=== PATIENT | male | born 1985 | race Hispanic/Latino ===

== ENCOUNTER 2021-10-23 19:45 | Emergency (ER) | payer BC, MEDICARE ==
[2021-10-23 20:50] LABS: Amphetamine Screen,Urine PRESUMPTIVE NEGATIVE; Benzodiazepines Screen,Urine PRESUMPTIVE NEGATIVE; Cannabinoid Screen,Urine PRESUMPTIVE NEGATIVE; Cocaine Screen,Urine PRESUMPTIVE NEGATIVE; Methadone Screen,Urine PRESUMPTIVE NEGATIVE; Opiate Screen,Urine PRESUMPTIVE NEGATIVE
[2021-10-23 20:55] LABS: Basophils % (Auto) 0.6 % (0.0-1.8); Eosinophils % (Auto) 0.2 % (0.0-4.3); Hematocrit 47.3 % (35.5-45.6); Hemoglobin 16.4 gm/dl (11.8-15.2); Lymphocytes # (Auto) 1.3 K/mm3 (1.2-5.4); Lymphocytes % (Auto) 16.8 % (13.4-35.0); Mean Corpuscular HGB Conc 35 % (32-34); Mean Corpuscular Volume 86 fl (84-94); Monocytes # (Auto) 0.5 K/mm3 (0.0-0.8); Platelet Count 180 K/mm3 (140-440); Red Blood Count 5.51 M/mm3 (3.65-5.03); Red Cell Distribution Width 14.4 % (13.2-15.2)
[2021-10-23 20:58] LABS: Bilirubin,Urine NEG (Negative); Blood,Urine NEG (Negative); Color,Urine Yellow (Yellow); Protein,Urine <15 mg/dL mg/dL (Negative); WBC,Urine < 1.0 /HPF (0.0-6.0)
[2021-10-23 21:07] LABS: BUN/Creatinine Ratio 13; Blood Urea Nitrogen 10 mg/dL (9-20); Calcium 9.5 mg/dL (8.4-10.2); Hemolysis Index 10
--- NOTE | 2021-10-23 21:47 | Emergency Department Report ---
ED Psych HPI - General Chief Complaint: Psych Stated Complaint: DEPRESSED, SUICIDAL IDEATIONS Time Seen by Provider: 10/23/21 21:23 Source: patient Mode of arrival: Ambulatory - History of Present Illness Initial Comments: 36-year-old male with a history of bipolar who now presented with suicidal ideation that started this morning progressively getting worse. Patient denies any fall or trauma to the brain. Patient denies any homicidal ideation. He also mention compliant to his medication. No other modifying or associated factors reported. MD Complaint: suicidal ideation - Related Data Allergies Allergy/AdvReac Type Severity Reaction Status Date / Time diphenhydramine Allergy Unknown Verified 10/23/21 20:03 [From Benadryl] Penicillins Allergy Hives Verified 10/23/21 20:03 prednisone Allergy Unknown Verified 10/23/21 20:03 Sulfa (Sulfonamide Allergy Anaphylaxis Verified 10/23/21 20:03 Antibiotics) ED Review of Systems ROS: Stated complaint: DEPRESSED, SUICIDAL IDEATIONS Other details as noted in HPI Comment: All other systems reviewed and negative Psychiatric: depression, suicidal thoughts ED Past Medical Hx - Past Medical History Previous Medical History?: Yes Hx Psychiatric Treatment: Yes ED Physical Exam - General Limitations: No Limitations General appearance: alert, in no apparent distress - Head Head exam: Present: atraumatic, normal inspection - Eye Eye exam: Present: normal appearance Pupils: Present: normal accommodation - ENT ENT exam: Present: normal exam, normal orophraynx, mucous membranes moist - Neck Neck exam: Present: normal inspection, full ROM. Absent: tenderness - Respiratory Respiratory exam: Present: normal lung sounds bilaterally. Absent: respiratory distress, accessory muscle use - Cardiovascular Cardiovascular Exam: Present: regular rate, normal rhythm, normal heart sounds - GI/Abdominal GI/Abdominal exam: Present: soft, normal bowel sounds. Absent: tenderness - Extremities Exam Extremities exam: Present: normal inspection - Back Exam Back exam: Absent: tenderness - Neurological Exam Neurological exam: Present: alert, oriented X3 - Psychiatric Psychiatric exam: Present: normal affect, normal mood, depressed - Skin Skin exam: Present: warm, intact ED Course Vital Signs 10/23/21 19:58 Temperature 98.3 F Pulse Rate 110 H Respiratory 18 Rate Blood Pressure 146/93 [Left] O2 Sat by Pulse 100 Oximetry - Reevaluation(s) Reevaluation #1: 10/23/21 21:46 Here with suicidal ideation--with history of depression and anxiety--we will go ahead and check routine psych labs and have patient consulted with mental health-- ED Medical Decision Making - Lab Data Result diagrams: 10/23/21 20:35 10/23/21 20:35 Critical care attestation.: If time is entered above; I have spent that time in minutes in the direct care of this critically ill patient, excluding procedure time. ED Disposition Clinical Impression: Suicidal ideation Depression Qualifiers: Depression Type: unspecified Qualified Code(s): F32.A - Depression, unspecified Does the pt Need Aspirin: No Condition: Stable
[2021-10-23 22:34] LABS: Alanine Aminotransferase 18 units/L (7-56); Albumin 4.8 g/dL (3.9-5); Bilirubin,Direct < 0.2 mg/dL (0-0.2)
--- NOTE | 2021-10-24 10:18 | Consultation ---
History of Present Illness - Reason for Consult Consult date: 10/24/21 Reason for consult: MHE - Chief Complaint Chief complaint: I was suicidal - History of Present Psychiatric Illness The patient is a 36yo male with history of bipolar disorder who present with suicidal thoughts yesterday. Patient is alert, calm and pleasant this morning. He feels a lot better and wants to go home and continue his treatment in outpatient. He denies abusing drugs. UDS is negative. He denies legal problems and states that he has no access to guns. Recommendations: DISPOSITION: Per primary team, no indication for acute inpatient psychiatric hospitalization at this time LEGAL STATUS: 1013 discontinued FOLLOW-UP: Will sign off Please contact with any questions and/or concerns. Medications and Allergies Allergies Allergy/AdvReac Type Severity Reaction Status Date / Time diphenhydramine Allergy Unknown Verified 10/23/21 20:03 [From Benadryl] Penicillins Allergy Hives Verified 10/23/21 20:03 prednisone Allergy Unknown Verified 10/23/21 20:03 Sulfa (Sulfonamide Allergy Anaphylaxis Verified 10/23/21 20:03 Antibiotics) Mental Status Exam - Vital signs Last Vital Signs Temp 98.3 F 10/23/21 19:58 Pulse 110 H 10/23/21 19:58 Resp 18 10/23/21 19:58 BP 146/93 10/23/21 19:58 Pulse Ox 97 10/23/21 21:45 - Exam Orientation: time, place, person Affect: normal Mood: appropriate Thought Process: Intact Perceptions: none Speech: normal rate and pattern Concentration: focused Motor activity: normal Level of consciousness: alert Memory: Intact Sleep Symptoms: None Interaction: cooperative Mini mental status exam(if necessary): 24-30 Results Result Diagrams: 10/23/21 20:35 10/23/21 20:35 Abnormal lab results 10/23/21 10/23/21 10/23/21 Range/Units 20:35 20:35 20:35 RBC (3.65-5.03) M/mm3 Hgb (11.8-15.2) gm/dl Hct (35.5-45.6) % MCHC (32-34) % Seg Neutrophils % (40.0-70.0) % Glucose 127 H (75-100) mg/dL Alkaline Phosphatase (35-129) units/L Salicylates < 0.3 L (2.8-20.0) mg/dL Acetaminophen 5.0 L (10.0-30.0) ug/mL 10/23/21 10/23/21 Range/Units 20:35 22:01 RBC 5.51 H (3.65-5.03) M/mm3 Hgb 16.4 H (11.8-15.2) gm/dl Hct 47.3 H (35.5-45.6) % MCHC 35 H (32-34) % Seg Neutrophils % 75.4 H (40.0-70.0) % Glucose (75-100) mg/dL Alkaline Phosphatase 137 H (35-129) units/L Salicylates (2.8-20.0) mg/dL Acetaminophen (10.0-30.0) ug/mL All other labs normal. Assessment and Plan - Psychiatric problem (1) Bipolar affective disorder Current Visit: Yes Status: Acute
--- NOTE | 2021-10-24 11:20 | Event Note ---
Date: 10/24/21 Patient is a 36 years old male admitted to the ER with a suicidal ideation. Patient has been evaluated by our psychiatric team recommended patient to be discharged and follow-up as an outpatient. Patient is currently denying any suicidal homicidal ideation. No visual or auditory hallucination. Patient is medically and psychiatrically stable for discharge.
[2021-10-24 11:55] VITALS: BP 147/90
== END 2021-10-24 12:36 ==
LOC: ED 19:45
DX: R45.851 Suicidal ideations (principal); F32.9 Major depressive disorder, single episode, unspecified; Z20.822 Contact with and (suspected) exposure to COVID-19; Z88.0 Allergy status to penicillin; Z88.2 Allergy status to sulfonamides; Z88.8 Allergy status to other drugs, medicaments and biological substances
CPT/HCPCS: 36415; 80048; 80076; 80307; 81001; 85025; 99284; U0003; 80320; G0480

== ENCOUNTER 2021-11-20 16:08 | Emergency (ER) | payer BC, MEDICARE ==
[2021-11-20 16:55] LABS: Basophils % (Auto) 0.5 % (0.0-1.8); Eosinophils % (Auto) 0.3 % (0.0-4.3); Hemoglobin 15.3 gm/dl (11.8-15.2); Lymphocytes # (Auto) 0.9 K/mm3 (1.2-5.4); Lymphocytes % (Auto) 10.5 % (13.4-35.0); Mean Corpuscular HGB Conc 33 % (32-34); Mean Corpuscular Volume 83 fl (84-94); Monocytes # (Auto) 0.6 K/mm3 (0.0-0.8); Platelet Count 217 K/mm3 (140-440); Red Blood Count 5.52 M/mm3 (3.65-5.03); Red Cell Distribution Width 14.7 % (13.2-15.2)
--- NOTE | 2021-11-20 17:00 | Emergency Department Report ---
ED Psych HPI - General Chief Complaint: Psych Stated Complaint: SI/HI Time Seen by Provider: 11/20/21 16:20 Source: patient Mode of arrival: Ambulatory Limitations: No Limitations - History of Present Illness Initial Comments: 36-year-old male with a past medical history of bipolar disorder, schizoaffective disorder, generalized anxiety disorder, and seizures presents to the hospital with complaints of severe depression. Patient is compliant with his medications. Patient presents with a police escort. Patient was at [facility] prior to ED arrival. Apparently patient expressed suicidal homicidal ideation therefore police were called to escort patient to the hospital for 1013 and evaluation. As per paperwork provided by [facility] it appears the patient was admitted. Yesterday for detox. Patient admits to drug use but nonspecific as to which drugs he is abusing. He denies alcohol abuse. Patient does endorse auditory hallucinations. He denies physical complaints. Upon arrival he denies suicidal homicidal ideation and states he is just very sad - Related Data Home Medications Medication Instructions Recorded Confirmed Last Taken Albuterol Sulfate 90 mcg INHALATION PRN 11/20/21 Unknown Aripiprazole 20 mg PO DAILY 11/20/21 11/20/21 Unknown Carbamazepine 200 mg PO DAILY 11/20/21 11/20/21 Unknown Escitalopram 10 mg PO DAILY 11/20/21 11/20/21 Unknown Hydroxyzine Pamoate 50 mg PO Q4HR 11/20/21 11/20/21 Unknown [place] Carbonate 300 mg PO BID 11/20/21 11/20/21 Unknown risperiDONE 1 mg PO QAM 11/20/21 11/20/21 Unknown risperiDONE 2 mg PO QHS 11/20/21 11/20/21 Unknown Allergies Allergy/AdvReac Type Severity Reaction Status Date / Time diphenhydramine Allergy Unknown Verified 11/20/21 16:16 [From Benadryl] Penicillins Allergy Hives Verified 11/20/21 16:16 prednisone Allergy Unknown Verified 11/20/21 16:16 Sulfa (Sulfonamide Allergy Anaphylaxis Verified 11/20/21 16:16 Antibiotics) ED Review of Systems ROS: Stated complaint: SI/HI Other details as noted in HPI Comment: All other systems reviewed and negative ED Past Medical Hx - Past Medical History Previous Medical History?: Yes Hx Seizures: Yes Hx Psychiatric Treatment: Yes (SCHIZOAFFECTIVE DISOIRDER, BIPOLAR,ANXIETY) - Medications Home Medications: Home Medications Medication Instructions Recorded Confirmed Last Taken Type Albuterol Sulfate 90 mcg INHALATION PRN 11/20/21 Unknown History Aripiprazole 20 mg PO DAILY 11/20/21 11/20/21 Unknown History Carbamazepine 200 mg PO DAILY 11/20/21 11/20/21 Unknown History Escitalopram 10 mg PO DAILY 11/20/21 11/20/21 Unknown History Hydroxyzine Pamoate 50 mg PO Q4HR 11/20/21 11/20/21 Unknown History [place] Carbonate 300 mg PO BID 11/20/21 11/20/21 Unknown History risperiDONE 1 mg PO QAM 11/20/21 11/20/21 Unknown History risperiDONE 2 mg PO QHS 11/20/21 11/20/21 Unknown History ED Physical Exam - General Limitations: Other - Other Other exam information: General: No acute distress Head: Atraumatic Eyes: normal appearance ENT: Moist mucous membranes Neck: Normal appearance, no midline tenderness Chest: Clear to auscultation bilaterally CV: Regular rate and rhythm Abdomen: Soft, normal bowel sounds, nontender, nondistended, no rebound or guarding Back: Normal inspection Extremity: Normal inspection, full range of motion Neuro: Alert O x 3, no facial asymmetry, speech clear, no gross motor sensory deficit Psych: Cooperative, very talkative, good eye contact Skin: No rash ED Course Vital Signs 11/20/21 11/20/21 16:56 17:03 Temperature 98.9 F Pulse Rate 105 H Respiratory 16 Rate Blood Pressure 152/96 [Left] O2 Sat by Pulse 96 96 Oximetry ED Medical Decision Making - Lab Data Result diagrams: 11/20/21 16:33 11/20/21 16:33 - Medical Decision Making 36-year male presents to the hospital with psychosis, substance abuse, homicidal , and suicidal ideation. UA UDS collection pending however, patient is medically cleared based on results thus far. Patient required IM antipsychotic for sedation due to combative behavior in the ED. 1013 signed and awaiting psychiatric disposition. Critical care attestation.: If time is entered above; I have spent that time in minutes in the direct care of this critically ill patient, excluding procedure time. ED Disposition Clinical Impression: Bipolar affective disorder, Suicidal ideation, Homicidal ideation, Acute psyc hosis, Medical clearance for psychiatric admission Disposition: [address] [place] [address] Is pt being admited?: No Condition: Stable
[2021-11-20 17:14] LABS: BUN/Creatinine Ratio 14; Blood Urea Nitrogen 7 mg/dL (9-20); Calcium 9.6 mg/dL (8.4-10.2); Hemolysis Index 16
[2021-11-20] MEDS ORDERED: ZIPRASIDONE MESYLATE 20 MG VIAL IM ONE (17:50)
[2021-11-20] MEDS ORDERED: WATER FOR INJ Sterile (PF) 10 ML ONE ×2 (18:49→18:50)
[2021-11-21] MEDS ORDERED: ZIPRASIDONE MESYLATE 20 MG VIAL IM ONE ×2 (00:17)
[2021-11-21 09:27] LABS: Amphetamine Screen,Urine Negative; Benzodiazepines Screen,Urine Negative; Cannabinoid Screen,Urine Negative; Cocaine Screen,Urine Negative; Methadone Screen,Urine Negative; Opiate Screen,Urine Negative
[2021-11-21 09:40] LABS: Mucus,Urine FEW /HPF
--- NOTE | 2021-11-21 09:44 | Consultation ---
History of Present Illness - Reason for Consult Consult date: 11/21/21 Reason for consult: depression, SI - History of Present Psychiatric Illness HPI: 36-year-old male with a past medical history of bipolar disorder, schizoaffective disorder, generalized anxiety disorder, and seizures presents to the hospital with complaints of severe depression. Patient is compliant with his medications. Patient presents with a police escort. Patient was at [facility] prior to ED arrival. Apparently patient expressed suicidal homicidal ideation therefore police were called to escort patient to the hospital for 1013 and evaluation. As per paperwork provided by [facility] it appears the patient was admitted. Yesterday for detox. Patient admits to drug use but nonspecific as to which drugs he is abusing. He denies alcohol abuse. Patient does endorse auditory hallucinations. He denies physical complaints. Upon arrival he denies suicidal homicidal ideation and states he is just very sad. The patient was seen today. He is in the seclusion room. He is shaking and appears anxious. The patient says "I want to cooperate." He says he feels very sad and has bad nerves. He denies SI/HI. He starts crying, and says "don't close the door. I need it open." the patient denies hallucinations at present, but says "sometimes." The nursing staff says the patient has been talking to himself a lot. PAST PSYCHIATRIC HISTORY: Diagnoses: Bipolar Disorder, schizoaffective disorder, ELMA Suicide attempts or Self-harm behavior: Yes Prior psychiatric hospitalizations: Yes Substance Abuse history: Denies Previous psychiatric medications tried: bob Patrick Outpatient treatment: Yes PAST MEDICAL HISTORY: None reported Family Psychiatric History: None reported or documented SOCIAL HISTORY Marital Status: Living Arrangements: [facility] Employment Status: Disabled Access to guns/weapons: Denies Education: History of Abuse:Denies Legal History: Denies REVIEW OF SYSTEMS Constitutional: Negative for weight loss ENT: Negative for stridor Respiratory: Negative for cough or hemoptysis All other systems reviewed and are negative MENTAL STATUS EXAMINATION General Appearance and Behavior: Age appropriate, wearing appropriate clothes, cooperative, polite with questioning, good eye contact Cooperation: cooperative Psychomotor Behavior: Psychomotor normal Mood: Depressed Affect and affective range: congruent with stated affect Thought Process: Goal directed Thought Content: depression, hopelessness Speech: Normal volume, Regular rate and rhythm Suicidal Ideation: Denies Homicidal Ideation: Denies Hallucination: Auditory Delusions: Denies Impulse Control: Limited Insight and Judgment: Limited Memory: Intact Attention:attentive Orientation: Alert and oriented Diagnoses: Bipolar Disorder Treatment Plan 1013 Abilify 20mg po daily Lexapro 20mg po daily Doxepin 10mg po qhs Sitter: per primary Medical: Per primary Disposition: Recommend acute psychiatric inpatient treatment Will follow. Thanks Case staffed by Dr. Weller Medications and Allergies Allergies Allergy/AdvReac Type Severity Reaction Status Date / Time diphenhydramine Allergy Unknown Verified 11/20/21 16:16 [From Benadryl] Penicillins Allergy Hives Verified 11/20/21 16:16 prednisone Allergy Unknown Verified 11/20/21 16:16 Sulfa (Sulfonamide Allergy Anaphylaxis Verified 11/20/21 16:16 Antibiotics) Home Medications Medication Instructions Recorded Confirmed Last Taken Type Albuterol Sulfate 90 mcg INHALATION PRN 11/20/21 Unknown History Aripiprazole 20 mg PO DAILY 11/20/21 11/20/21 Unknown History Carbamazepine 200 mg PO DAILY 11/20/21 11/20/21 Unknown History Escitalopram 10 mg PO DAILY 11/20/21 11/20/21 Unknown History Hydroxyzine Pamoate 50 mg PO Q4HR 11/20/21 11/20/21 Unknown History [place] Carbonate 300 mg PO BID 11/20/21 11/20/21 Unknown History risperiDONE 1 mg PO QAM 11/20/21 11/20/21 Unknown History risperiDONE 2 mg PO QHS 11/20/21 11/20/21 Unknown History Mental Status Exam - Vital signs Last Vital Signs Temp 98 F 11/21/21 00:20 Pulse 92 H 11/21/21 00:20 Resp 18 11/21/21 00:20 BP 136/86 11/21/21 00:20 Pulse Ox 100 11/21/21 00:20 Results Result Diagrams: 11/20/21 16:33 11/20/21 16:33 Abnormal lab results 11/20/21 11/20/21 11/20/21 Range/Units 16:33 16:33 16:33 RBC 5.52 H (3.65-5.03) M/mm3 Hgb 15.3 H (11.8-15.2) gm/dl Hct 46.0 H (35.5-45.6) % MCV 83 L (84-94) fl Lymph % (Auto) 10.5 L (13.4-35.0) % Lymph # (Auto) 0.9 L (1.2-5.4) K/mm3 Seg Neutrophils % 81.7 H (40.0-70.0) % Sodium 135 L (137-145) mmol/L BUN 7 L (9-20) mg/dL Creatinine 0.5 L (0.8-1.3) mg/dL Glucose 106 H (75-100) mg/dL Salicylates < 0.3 L (2.8-20.0) mg/dL Acetaminophen (10.0-30.0) ug/mL 11/20/21 Range/Units 16:33 RBC (3.65-5.03) M/mm3 Hgb (11.8-15.2) gm/dl Hct (35.5-45.6) % MCV (84-94) fl Lymph % (Auto) (13.4-35.0) % Lymph # (Auto) (1.2-5.4) K/mm3 Seg Neutrophils % (40.0-70.0) % Sodium (137-145) mmol/L BUN (9-20) mg/dL Creatinine (0.8-1.3) mg/dL Glucose (75-100) mg/dL Salicylates (2.8-20.0) mg/dL Acetaminophen 5.0 L (10.0-30.0) ug/mL All other labs normal.
[2021-11-21 10:08] LABS: Bilirubin,Urine Negative (Negative); Blood,Urine Negative (Negative); Color,Urine Yellow (Yellow); Urobilinogen,Urine < 2.0 mg/dL (<2.0)
[2021-11-21] MEDS: ARIPiprazole 10 MG TAB PO SCH (10:37)
[2021-11-21] MEDS: ESCITALOPRAM 10 MG TAB PO SCH (10:37)
[2021-11-21] MEDS: DOXEPIN 10 MG CAP PO SCH (22:00)
--- NOTE | 2021-11-22 10:15 | Progress Note ---
Subjective - Reason for Consult Consult date: 11/22/21 Reason for consult: psychosis - Chief Complaint Chief complaint: The patient was seen today. He is in the seclusion room. The patient is positive for COVID. He is acutely psychotic. He says he's "blessed and highly favored." The patient says he's depressed. He is asking me if he can play basketball. He is mumbling at times. REVIEW OF SYSTEMS Constitutional: Negative for weight loss ENT: Negative for stridor Respiratory: Negative for cough or hemoptysis All other systems reviewed and are negative MENTAL STATUS EXAMINATION General Appearance and Behavior: Age appropriate, wearing appropriate clothes, cooperative, polite with questioning, good eye contact Cooperation: cooperative Psychomotor Behavior: Psychomotor normal Mood: Depressed Affect and affective range: congruent with stated affect Thought Process: Goal directed Thought Content: depression, hopelessness Speech: Normal volume, Regular rate and rhythm Suicidal Ideation: Denies Homicidal Ideation: Denies Hallucination: Auditory Delusions: Denies Impulse Control: Limited Insight and Judgment: Limited Memory: Intact Attention:attentive Orientation: Alert and oriented Diagnoses: Bipolar Disorder Treatment Plan [address] 125mg po BID Abilify 20mg po daily Lexapro 20mg po daily Doxepin 10mg po qhs Sitter: per primary Medical: Per primary Disposition: Recommend acute psychiatric inpatient treatment Will follow. Thanks Case staffed by Dr. Weller Mental Status Exam - Vital signs Last Vital Signs Temp 98.1 F 11/21/21 20:16 Pulse 88 11/21/21 20:16 Resp 18 11/21/21 20:16 BP 139/88 11/21/21 20:16 Pulse Ox 98 11/21/21 20:16
--- NOTE | 2021-11-22 11:56 | Event Note ---
Date: 11/22/21 The patient can not refuse oral antipsychotic. He is to have prn Geodon up to q4h as needed if refusal of oral antipsychotic.
--- NOTE | 2021-11-22 12:05 | Event Note ---
Date: 11/22/21 The patient was evaluated in the emergency department for symptoms described in the history of present illness. He/she was evaluated in the context of the global COVID-19 pandemic, which necessitated consideration that the patient might be at risk for infection with the virus that causes COVID-19. Institutional protocols and algorithms that pertain to the evaluation of patients at risk for COVID-19 are in a state of rapid change based on information released by regulatory bodies including the CDC and federal and state organizations. These policies and algorithms were followed during the patient's care in the emergency department. Please note that these policies, procedures and recommendations changed on a rapid basis. Patient seen and evaluated. He is breathing spontaneously and in no acute distress. He was deemed medically suitable for psychiatric placement during his initial ER evaluation. His laboratory studies are unremarkable, and despite the fact that he is COVID-19 positive, he is not hypoxic. His COVID-19 status does not medically preclude him from psychiatric placement and disposition. He remains disorganized, and psychotic, and nursing team reports that he is masturbating in the room. He is refusing to take his oral medications. As needed intramuscular medications have been ordered by the psychiatric provider. Laboratory studies, vital signs, ER documentation, psychiatric documentation, and nursing documentation reviewed and appreciated Patient remains medically suitable for psychiatric placement and disposition at this time, and currently does not have an emergent medical condition which would preclude psychiatric placement and disposition Vital Signs 11/20/21 11/20/21 11/21/21 16:56 17:03 00:15 Temperature 98.9 F 98 F Pulse Rate 105 H 92 H Respiratory 16 18 Rate Blood Pressure 152/96 138/99 [Left] O2 Sat by Pulse 96 96 100 Oximetry 11/21/21 11/21/21 11/21/21 00:20 09:56 11:19 Temperature 98 F 97.4 F L Pulse Rate 92 H 97 H Respiratory 18 18 Rate Blood Pressure 136/86 131/89 [Left] O2 Sat by Pulse 100 98 98 Oximetry 11/21/21 11/21/21 16:16 20:16 Temperature 98.1 F Pulse Rate 88 Respiratory 18 Rate Blood Pressure 139/88 [Left] O2 Sat by Pulse 100 98 Oximetry Lab Results 11/20/21 11/20/21 11/20/21 Range/Units 16:33 16:33 16:33 WBC 8.3 (4.5-11.0) K/mm3 RBC 5.52 H (3.65-5.03) M/mm3 Hgb 15.3 H (11.8-15.2) gm/dl Hct 46.0 H (35.5-45.6) % MCV 83 L (84-94) fl MCH 28 (28-32) pg MCHC 33 (32-34) % RDW 14.7 (13.2-15.2) % Plt Count 217 (140-440) K/mm3 Lymph % (Auto) 10.5 L (13.4-35.0) % Young % (Auto) 7.0 (0.0-7.3) % Eos % (Auto) 0.3 (0.0-4.3) % Baso % (Auto) 0.5 (0.0-1.8) % Lymph # (Auto) 0.9 L (1.2-5.4) K/mm3 [place] # (Auto) 0.6 (0.0-0.8) K/mm3 Eos # (Auto) 0.0 (0.0-0.4) K/mm3 Baso # (Auto) 0.0 (0.0-0.1) K/mm3 Seg Neutrophils % 81.7 H (40.0-70.0) % Seg Neutrophils # 6.8 (1.8-7.7) K/mm3 Sodium 135 L (137-145) mmol/L Potassium 4.1 (3.6-5.0) mmol/L Chloride 98.6 (98-107) mmol/L Carbon Dioxide 26 (22-30) mmol/L Anion Gap 15 mmol/L BUN 7 L (9-20) mg/dL Creatinine 0.5 L (0.8-1.3) mg/dL Estimated GFR > 60 ml/min BUN/Creatinine Ratio 14 % Glucose 106 H (75-100) mg/dL Calcium 9.6 (8.4-10.2) mg/dL Urine Color (Yellow) Urine Turbidity (Clear) Urine pH (5.0-7.0) Ur Specific [place] (1.003-1.030) Urine Protein (Negative) mg/dL Urine Glucose (UA) (Negative) mg/dL Urine Ketones (Negative) mg/dL Urine Blood (Negative) Urine Nitrite (Negative) Ur Reducing Substances Urine Bilirubin (Negative) Urine Ictotest Urine Urobilinogen (<2.0) mg/dL Ur Leukocyte Esterase (Negative) Urine WBC (Auto) (0.0-6.0) /HPF Urine RBC (Auto) (0.0-6.0) /HPF U Epithel Cells (Auto) (0-13.0) /HPF Urine Mucus /HPF Salicylates < 0.3 L (2.8-20.0) mg/dL Urine Opiates Screen Urine Methadone Screen Acetaminophen (10.0-30.0) ug/mL Ur Barbiturates Screen Ur Phencyclidine Scrn Ur Amphetamines Screen U Benzodiazepines Scrn [place] 0.1 (0.0-1.2) mmol/L Urine Cocaine Screen U Marijuana (THC) Screen Drugs of Abuse Note Plasma/Serum Alcohol (0-0.07) % SARS-CoV-2 (PCR) (Negative) 11/20/21 11/20/21 11/21/21 Range/Units 16:33 16:33 08:59 WBC (4.5-11.0) K/mm3 RBC (3.65-5.03) M/mm3 Hgb (11.8-15.2) gm/dl Hct (35.5-45.6) % MCV (84-94) fl MCH (28-32) pg MCHC (32-34) % RDW (13.2-15.2) % Plt Count (140-440) K/mm3 Lymph % (Auto) (13.4-35.0) % [place] % (Auto) (0.0-7.3) % Eos % (Auto) (0.0-4.3) % Baso % (Auto) (0.0-1.8) % Lymph # (Auto) (1.2-5.4) K/mm3 [place] # (Auto) (0.0-0.8) K/mm3 Eos # (Auto) (0.0-0.4) K/mm3 Baso # (Auto) (0.0-0.1) K/mm3 Seg Neutrophils % (40.0-70.0) % Seg Neutrophils # (1.8-7.7) K/mm3 Sodium (137-145) mmol/L Potassium (3.6-5.0) mmol/L Chloride (98-107) mmol/L Carbon Dioxide (22-30) mmol/L Anion Gap mmol/L BUN (9-20) mg/dL Creatinine (0.8-1.3) mg/dL Estimated GFR ml/min BUN/Creatinine Ratio % Glucose (75-100) mg/dL Calcium (8.4-10.2) mg/dL Urine Color Yellow (Yellow) Urine Turbidity Clear (Clear) Urine pH 7.0 (5.0-7.0) Ur Specific [place] 1.010 (1.003-1.030) Urine Protein 30 mg/dl (Negative) mg/dL Urine Glucose (UA) Negative (Negative) mg/dL Urine Ketones 25 (Negative) mg/dL Urine Blood Negative (Negative) Urine Nitrite Negative (Negative) Ur Reducing Substances Not Reportable Urine Bilirubin Negative (Negative) Urine Ictotest Not Reportable Urine Urobilinogen < 2.0 (<2.0) mg/dL Ur Leukocyte Esterase Negative (Negative) Urine WBC (Auto) 2.0 (0.0-6.0) /HPF Urine RBC (Auto) 1.0 (0.0-6.0) /HPF U Epithel Cells (Auto) 1.0 (0-13.0) /HPF Urine Mucus Few /HPF Salicylates (2.8-20.0) mg/dL Urine Opiates Screen Urine Methadone Screen Acetaminophen 5.0 L (10.0-30.0) ug/mL Ur Barbiturates Screen Ur Phencyclidine Scrn Ur Amphetamines Screen U Benzodiazepines Scrn [place] (0.0-1.2) mmol/L Urine Cocaine Screen U Marijuana (THC) Screen Drugs of Abuse Note Plasma/Serum Alcohol < 0.01 (0-0.07) % SARS-CoV-2 (PCR) (Negative) 11/21/21 11/21/21 Range/Units 08:59 09:38 WBC (4.5-11.0) K/mm3 RBC (3.65-5.03) M/mm3 Hgb (11.8-15.2) gm/dl Hct (35.5-45.6) % MCV (84-94) fl MCH (28-32) pg MCHC (32-34) % RDW (13.2-15.2) % Plt Count (140-440) K/mm3 Lymph % (Auto) (13.4-35.0) % Young % (Auto) (0.0-7.3) % Eos % (Auto) (0.0-4.3) % Baso % (Auto) (0.0-1.8) % Lymph # (Auto) (1.2-5.4) K/mm3 Young # (Auto) (0.0-0.8) K/mm3 Eos # (Auto) (0.0-0.4) K/mm3 Baso # (Auto) (0.0-0.1) K/mm3 Seg Neutrophils % (40.0-70.0) % Seg Neutrophils # (1.8-7.7) K/mm3 Sodium (137-145) mmol/L Potassium (3.6-5.0) mmol/L Chloride (98-107) mmol/L Carbon Dioxide (22-30) mmol/L Anion Gap mmol/L BUN (9-20) mg/dL Creatinine (0.8-1.3) mg/dL Estimated GFR ml/min BUN/Creatinine Ratio % Glucose (75-100) mg/dL Calcium (8.4-10.2) mg/dL Urine Color (Yellow) Urine Turbidity (Clear) Urine pH (5.0-7.0) Ur Specific [place] (1.003-1.030) Urine Protein (Negative) mg/dL Urine Glucose (UA) (Negative) mg/dL Urine Ketones (Negative) mg/dL Urine Blood (Negative) Urine Nitrite (Negative) Ur Reducing Substances Urine Bilirubin (Negative) Urine Ictotest Urine Urobilinogen (<2.0) mg/dL Ur Leukocyte Esterase (Negative) Urine WBC (Auto) (0.0-6.0) /HPF Urine RBC (Auto) (0.0-6.0) /HPF U Epithel Cells (Auto) (0-13.0) /HPF Urine Mucus /HPF Salicylates (2.8-20.0) mg/dL Urine Opiates Screen Negative Urine Methadone Screen Negative Acetaminophen (10.0-30.0) ug/mL Ur Barbiturates Screen Negative Ur Phencyclidine Scrn Negative Ur Amphetamines Screen Negative U Benzodiazepines Scrn Negative [place] (0.0-1.2) mmol/L Urine Cocaine Screen Negative U Marijuana (THC) Screen Negative Drugs of Abuse Note Disclamer Plasma/Serum Alcohol (0-0.07) % SARS-CoV-2 (PCR) Positive A (Negative)
[2021-11-22] MEDS: ZIPRASIDONE MESYLATE 20 MG VIAL IM PRN (15:16)
[2021-11-22] MEDS: ARIPiprazole 10 MG TAB PO SCH (15:17)
[2021-11-22] MEDS: ESCITALOPRAM 10 MG TAB PO SCH (15:17)
[2021-11-22] MEDS: DIVALPROEX DR 125 MG TAB PO SCH (15:17)
[2021-11-23] MEDS ORDERED: WATER FOR INJ Sterile (PF) 10 ML ONE (08:29)
[2021-11-23] MEDS: ZIPRASIDONE MESYLATE 20 MG VIAL IM PRN (09:00)
[2021-11-23] MEDS: ESCITALOPRAM 10 MG TAB PO SCH (09:47)
[2021-11-23] MEDS: ARIPiprazole 10 MG TAB PO SCH (09:47)
[2021-11-23] MEDS: DIVALPROEX DR 125 MG TAB PO SCH (09:48)
--- NOTE | 2021-11-23 10:44 | Progress Note ---
Subjective - Reason for Consult Consult date: 11/23/21 Reason for consult: psychosis, depression - Chief Complaint Chief complaint: The patient was seen today. His thoughts are disorganized. He is hallucinating. He tells me that "Opal is bringing quests in and keeps throwing away my food." He is pointing in his room and no one is there. He says "I'm peaceful. I don't want to hurt myself or anybody. I just wish he would leave my room." Instructed the staff nurse to now allow the patient to refuse any meds, that he is to have prn antipsychotic if refuses oral antipsychotics. REVIEW OF SYSTEMS Constitutional: Negative for weight loss ENT: Negative for stridor Respiratory: Negative for cough or hemoptysis All other systems reviewed and are negative MENTAL STATUS EXAMINATION General Appearance and Behavior: Age appropriate, wearing appropriate clothes, cooperative, polite with questioning, good eye contact Cooperation: cooperative Psychomotor Behavior: Psychomotor normal Mood: Depressed Affect and affective range: congruent with stated affect Thought Process: Goal directed Thought Content: depression, hopelessness Speech: Normal volume, Regular rate and rhythm Suicidal Ideation: Denies Homicidal Ideation: Denies Hallucination: Auditory Delusions: Denies Impulse Control: Limited Insight and Judgment: Limited Memory: Intact Attention:attentive Orientation: Alert and oriented Diagnoses: Bipolar Disorder Treatment Plan [address] 250mg po BID Increase Abilify 30mg po daily Lexapro 20mg po daily Doxepin 10mg po qhs Sitter: per primary Medical: Per primary Disposition: Recommend acute psychiatric inpatient treatment Will follow. Thanks Case staffed by Dr. Weller Mental Status Exam - Vital signs Last Vital Signs Temp 98.7 F 11/23/21 08:20 Pulse 107 H 11/23/21 08:20 Resp 18 11/23/21 08:20 BP 138/87 11/23/21 08:20 Pulse Ox 100 11/23/21 09:01
--- NOTE | 2021-11-23 12:21 | Event Note ---
Date: 11/23/21 The patient is seen and examined He is naked in room 14 and as per verbal report from nursing team, continues to masturbate. He has loose associations, and he is still psychotic. Nursing notes, ER documentation, psychiatric documentation is reviewed and appreciated. Vital signs are reviewed and appreciated. The patient remains medically vicente itable for psychiatric disposition and placement at this time. He does not appear to have an emergent medical contraindication that should preclude psychiatric disposition and placement at this time Vital Signs 11/20/21 11/20/21 11/21/21 16:56 17:03 00:15 Temperature 98.9 F 98 F Pulse Rate 105 H 92 H Respiratory 16 18 Rate Blood Pressure 152/96 138/99 [Left] O2 Sat by Pulse 96 96 100 Oximetry 11/21/21 11/21/21 11/21/21 00:20 09:56 11:19 Temperature 98 F 97.4 F L Pulse Rate 92 H 97 H Respiratory 18 18 Rate Blood Pressure 136/86 131/89 [Left] O2 Sat by Pulse 100 98 98 Oximetry 11/21/21 11/21/21 11/22/21 16:16 20:16 20:56 Temperature 98.1 F 98.2 F Pulse Rate 88 85 Respiratory 18 18 Rate Blood Pressure 139/88 130/76 [Left] O2 Sat by Pulse 100 98 100 Oximetry 11/23/21 11/23/21 08:20 09:01 Temperature 98.7 F Pulse Rate 107 H Respiratory 18 Rate Blood Pressure 138/87 [Left] O2 Sat by Pulse 100 100 Oximetry
--- NOTE | 2021-11-24 09:56 | Progress Note ---
Subjective - Reason for Consult Consult date: 11/24/21 Reason for consult: psychosis - Chief Complaint Chief complaint: The patient was seen today. He is in the seclusion room. His thoughts are disorganized and he is speaking nonsensical. He is irritable, and talking loudly to himself. REVIEW OF SYSTEMS Unable to assess MENTAL STATUS EXAMINATION Unable to assess Diagnoses: Bipolar Disorder Treatment Plan [address] 250mg po BID Abilify 30mg po daily Lexapro 20mg po daily Doxepin 10mg po qhs Start [place] 300mg po BID Sitter: per primary Medical: Per primary Disposition: Recommend acute psychiatric inpatient treatment Will follow. Thanks Case staffed by Dr. Weller Mental Status Exam - Vital signs Last Vital Signs Temp 97.5 F L 11/24/21 08:25 Pulse 16 L 11/24/21 08:25 Resp 16 11/24/21 08:25 BP 141/87 11/24/21 08:25 Pulse Ox 95 11/24/21 08:25
[2021-11-24] MEDS: ARIPiprazole 15 MG TAB PO SCH (10:14)
[2021-11-24] MEDS: DIVALPROEX DR 250 MG TAB PO SCH (10:14)
[2021-11-24] MEDS: LITHIUM CARBONATE 300 MG CAP PO SCH (10:15)
[2021-11-24] MEDS: ESCITALOPRAM 10 MG TAB PO SCH ×2 (10:16→10:17)
--- NOTE | 2021-11-24 15:01 | Event Note ---
Date: 11/24/21 The patient was evaluated in the emergency department for symptoms described in the history of present illness. He/she was evaluated in the context of the global COVID-19 pandemic, which necessitated consideration that the patient might be at risk for infection with the virus that causes COVID-19. Institutional protocols and algorithms that pertain to the evaluation of patients at risk for COVID-19 are in a state of rapid change based on information released by regulatory bodies including the CDC and federal and state organizations. These policies and algorithms were followed during the patient's care in the emergency department. Please note that these policies, procedures and recommendations changed on a rapid basis. Laboratory studies, vital signs, nursing documentation, ER documentation, and psychiatric documentation are reviewed and appreciated. Patient remains disorganized and psychotic and is talking to himself The patient is awake and ambulating still experiencing pressured speech The patient was deemed medically suitable for psychiatric disposition and placement during his initial ER evaluation. The patient continues to remain medically suitable for psychiatric placement and disposition. He is currently pending psychiatric placement. Vital Signs 11/20/21 11/20/21 11/21/21 16:56 17:03 00:15 Temperature 98.9 F 98 F Pulse Rate 105 H 92 H Respiratory 16 18 Rate Blood Pressure 152/96 138/99 [Left] O2 Sat by Pulse 96 96 100 Oximetry 11/21/21 11/21/21 11/21/21 00:20 09:56 11:19 Temperature 98 F 97.4 F L Pulse Rate 92 H 97 H Respiratory 18 18 Rate Blood Pressure 136/86 131/89 [Left] O2 Sat by Pulse 100 98 98 Oximetry 11/21/21 11/21/21 11/22/21 16:16 20:16 20:56 Temperature 98.1 F 98.2 F Pulse Rate 88 85 Respiratory 18 18 Rate Blood Pressure 139/88 130/76 [Left] O2 Sat by Pulse 100 98 100 Oximetry 11/23/21 11/23/21 11/23/21 08:20 09:01 13:59 Temperature 98.7 F 97.6 F Pulse Rate 107 H 102 H Respiratory 18 20 Rate Blood Pressure 138/87 160/90 [Left] O2 Sat by Pulse 100 100 97 Oximetry 11/23/21 11/24/21 11/24/21 20:27 02:48 08:12 Temperature 98.1 F 98.1 F Pulse Rate 98 H 112 H Respiratory 18 18 Rate Blood Pressure 155/102 148/91 [Left] O2 Sat by Pulse 98 95 95 Oximetry 11/24/21 08:25 Temperature 97.5 F L Pulse Rate 16 L Respiratory 16 Rate Blood Pressure 141/87 [Left] O2 Sat by Pulse 95 Oximetry Lab Results 11/20/21 11/20/21 11/20/21 Range/Units 16:33 16:33 16:33 WBC 8.3 (4.5-11.0) K/mm3 RBC 5.52 H (3.65-5.03) M/mm3 Hgb 15.3 H (11.8-15.2) gm/dl Hct 46.0 H (35.5-45.6) % MCV 83 L (84-94) fl MCH 28 (28-32) pg MCHC 33 (32-34) % RDW 14.7 (13.2-15.2) % Plt Count 217 (140-440) K/mm3 Lymph % (Auto) 10.5 L (13.4-35.0) % [place] % (Auto) 7.0 (0.0-7.3) % Eos % (Auto) 0.3 (0.0-4.3) % Baso % (Auto) 0.5 (0.0-1.8) % Lymph # (Auto) 0.9 L (1.2-5.4) K/mm3 [place] # (Auto) 0.6 (0.0-0.8) K/mm3 Eos # (Auto) 0.0 (0.0-0.4) K/mm3 Baso # (Auto) 0.0 (0.0-0.1) K/mm3 Seg Neutrophils % 81.7 H (40.0-70.0) % Seg Neutrophils # 6.8 (1.8-7.7) K/mm3 Sodium 135 L (137-145) mmol/L Potassium 4.1 (3.6-5.0) mmol/L Chloride 98.6 (98-107) mmol/L Carbon Dioxide 26 (22-30) mmol/L Anion Gap 15 mmol/L BUN 7 L (9-20) mg/dL Creatinine 0.5 L (0.8-1.3) mg/dL Estimated GFR > 60 ml/min BUN/Creatinine Ratio 14 % Glucose 106 H (75-100) mg/dL Calcium 9.6 (8.4-10.2) mg/dL Urine Color (Yellow) Urine Turbidity (Clear) Urine pH (5.0-7.0) Ur Specific [place] (1.003-1.030) Urine Protein (Negative) mg/dL Urine Glucose (UA) (Negative) mg/dL Urine Ketones (Negative) mg/dL Urine Blood (Negative) Urine Nitrite (Negative) Ur Reducing Substances Urine Bilirubin (Negative) Urine Ictotest Urine Urobilinogen (<2.0) mg/dL Ur Leukocyte Esterase (Negative) Urine WBC (Auto) (0.0-6.0) /HPF Urine RBC (Auto) (0.0-6.0) /HPF U Epithel Cells (Auto) (0-13.0) /HPF Urine Mucus /HPF Salicylates < 0.3 L (2.8-20.0) mg/dL Urine Opiates Screen Urine Methadone Screen Acetaminophen (10.0-30.0) ug/mL Ur Barbiturates Screen Ur Phencyclidine Scrn Ur Amphetamines Screen U Benzodiazepines Scrn [place] 0.1 (0.0-1.2) mmol/L Urine Cocaine Screen U Marijuana (THC) Screen Drugs of Abuse Note Plasma/Serum Alcohol (0-0.07) % SARS-CoV-2 (PCR) (Negative) 11/20/21 11/20/21 11/21/21 Range/Units 16:33 16:33 08:59 WBC (4.5-11.0) K/mm3 RBC (3.65-5.03) M/mm3 Hgb (11.8-15.2) gm/dl Hct (35.5-45.6) % MCV (84-94) fl MCH (28-32) pg MCHC (32-34) % RDW (13.2-15.2) % Plt Count (140-440) K/mm3 Lymph % (Auto) (13.4-35.0) % [place] % (Auto) (0.0-7.3) % Eos % (Auto) (0.0-4.3) % Baso % (Auto) (0.0-1.8) % Lymph # (Auto) (1.2-5.4) K/mm3 [place] # (Auto) (0.0-0.8) K/mm3 Eos # (Auto) (0.0-0.4) K/mm3 Baso # (Auto) (0.0-0.1) K/mm3 Seg Neutrophils % (40.0-70.0) % Seg Neutrophils # (1.8-7.7) K/mm3 Sodium (137-145) mmol/L Potassium (3.6-5.0) mmol/L Chloride (98-107) mmol/L Carbon Dioxide (22-30) mmol/L Anion Gap mmol/L BUN (9-20) mg/dL Creatinine (0.8-1.3) mg/dL Estimated GFR ml/min BUN/Creatinine Ratio % Glucose (75-100) mg/dL Calcium (8.4-10.2) mg/dL Urine Color Yellow (Yellow) Urine Turbidity Clear (Clear) Urine pH 7.0 (5.0-7.0) Ur Specific [place] 1.010 (1.003-1.030) Urine Protein 30 mg/dl (Negative) mg/dL Urine Glucose (UA) Negative (Negative) mg/dL Urine Ketones 25 (Negative) mg/dL Urine Blood Negative (Negative) Urine Nitrite Negative (Negative) Ur Reducing Substances Not Reportable Urine Bilirubin Negative (Negative) Urine Ictotest Not Reportable Urine Urobilinogen < 2.0 (<2.0) mg/dL Ur Leukocyte Esterase Negative (Negative) Urine WBC (Auto) 2.0 (0.0-6.0) /HPF Urine RBC (Auto) 1.0 (0.0-6.0) /HPF U Epithel Cells (Auto) 1.0 (0-13.0) /HPF Urine Mucus Few /HPF Salicylates (2.8-20.0) mg/dL Urine Opiates Screen Urine Methadone Screen Acetaminophen 5.0 L (10.0-30.0) ug/mL Ur Barbiturates Screen Ur Phencyclidine Scrn Ur Amphetamines Screen U Benzodiazepines Scrn [place] (0.0-1.2) mmol/L Urine Cocaine Screen U Marijuana (THC) Screen Drugs of Abuse Note Plasma/Serum Alcohol < 0.01 (0-0.07) % SARS-CoV-2 (PCR) (Negative) 11/21/21 11/21/21 11/23/21 Range/Units 08:59 09:38 07:50 WBC (4.5-11.0) K/mm3 RBC (3.65-5.03) M/mm3 Hgb (11.8-15.2) gm/dl Hct (35.5-45.6) % MCV (84-94) fl MCH (28-32) pg MCHC (32-34) % RDW (13.2-15.2) % Plt Count (140-440) K/mm3 Lymph % (Auto) (13.4-35.0) % [place] % (Auto) (0.0-7.3) % Eos % (Auto) (0.0-4.3) % Baso % (Auto) (0.0-1.8) % Lymph # (Auto) (1.2-5.4) K/mm3 [place] # (Auto) (0.0-0.8) K/mm3 Eos # (Auto) (0.0-0.4) K/mm3 Baso # (Auto) (0.0-0.1) K/mm3 Seg Neutrophils % (40.0-70.0) % Seg Neutrophils # (1.8-7.7) K/mm3 Sodium (137-145) mmol/L Potassium (3.6-5.0) mmol/L Chloride (98-107) mmol/L Carbon Dioxide (22-30) mmol/L Anion Gap mmol/L BUN (9-20) mg/dL Creatinine (0.8-1.3) mg/dL Estimated GFR ml/min BUN/Creatinine Ratio % Glucose (75-100) mg/dL Calcium (8.4-10.2) mg/dL Urine Color (Yellow) Urine Turbidity (Clear) Urine pH (5.0-7.0) Ur Specific [place] (1.003-1.030) Urine Protein (Negative) mg/dL Urine Glucose (UA) (Negative) mg/dL Urine Ketones (Negative) mg/dL Urine Blood (Negative) Urine Nitrite (Negative) Ur Reducing Substances Urine Bilirubin (Negative) Urine Ictotest Urine Urobilinogen (<2.0) mg/dL Ur Leukocyte Esterase (Negative) Urine WBC (Auto) (0.0-6.0) /HPF Urine RBC (Auto) (0.0-6.0) /HPF U Epithel Cells (Auto) (0-13.0) /HPF Urine Mucus /HPF Salicylates (2.8-20.0) mg/dL Urine Opiates Screen Negative Urine Methadone Screen Negative Acetaminophen (10.0-30.0) ug/mL Ur Barbiturates Screen Negative Ur Phencyclidine Scrn Negative Ur Amphetamines Screen Negative U Benzodiazepines Scrn Negative [place] (0.0-1.2) mmol/L Urine Cocaine Screen Negative U Marijuana (THC) Screen Negative Drugs of Abuse Note Disclamer Plasma/Serum Alcohol (0-0.07) % SARS-CoV-2 (PCR) Positive A Positive A (Negative)
--- NOTE | 2021-11-25 09:02 | Progress Note ---
Subjective - Reason for Consult Consult date: 11/25/21 Reason for consult: psychosis - Chief Complaint Chief complaint: The patient was seen today. He is in the seclusion room. His thoughts are more organized today, but he still has some bizarre behaviors. He is playing with his feet while talking to me and staring intensely at times. He verbalizes feeling "much better." He says he's still hallucinating and hearing "various things." He denies them being threatening in nature. The patient denies SI/HI. Nurse reports the patient was having loose associations. Will order Abilify maintena to increase med compliance and remission of mental illness. Once Abilify maintena is given will wean down on oral abilify. REVIEW OF SYSTEMS Unable to assess MENTAL STATUS EXAMINATION Unable to assess Diagnoses: Bipolar Disorder Treatment Plan 1013 Start Abilify [place] 300mg IM x [address] 250mg po BID Abilify 30mg po daily Lexapro 20mg po daily Doxepin 10mg po qhs [place] 300mg po BID Sitter: per primary Medical: Per primary Disposition: Recommend acute psychiatric inpatient treatment Will follow. Thanks Case staffed by Dr. eWller Mental Status Exam - Vital signs Last Vital Signs Temp 98.4 F 11/25/21 04:54 Pulse 82 11/25/21 04:54 Resp 18 11/25/21 04:54 BP 124/62 11/25/21 04:54 Pulse Ox 99 11/25/21 04:54
[2021-11-25] MEDS ORDERED: ARIPIPRAZOLE 300 MG IM SCH (10:00)
[2021-11-25] MEDS: DIVALPROEX DR 250 MG TAB PO SCH ×2 (11:11→22:10)
[2021-11-25] MEDS: ARIPiprazole 15 MG TAB PO SCH (11:11)
[2021-11-25] MEDS: ESCITALOPRAM 10 MG TAB PO SCH (11:11)
[2021-11-25] MEDS: LITHIUM CARBONATE 300 MG CAP PO SCH ×2 (11:11→22:10)
--- NOTE | 2021-11-25 11:54 | Event Note ---
Patient evaluated this morning and states he feels better however still exhibits bizarre behaviors. He is currently in no acute distress. We will plan to keep [address]
--- NOTE | 2021-11-25 15:59 | XRay Report ---
RIGHT FOOT 2 VIEW(S) INDICATION / CLINICAL INFORMATION: Swelling COMPARISON: None available. FINDINGS: BONES / JOINT(S): Fractures are noted of the second and third metatarsal necks with bulky callus form ation suggesting subacute fracture. There is also possible callus formation at the base of the proxim al phalanx of the first digit suggesting additional subacute fracture. No significant arthritis. SOFT TISSUES: Moderate soft tissue swelling about the forefoot. ADDITIONAL FINDINGS: None. Signer Name: Branden Mccoy DO Signed: 11/25/2021 3:55 PM Workstation Name: [email or web address]
[2021-11-25] MEDS: DOXEPIN 10 MG CAP PO SCH (22:10)
[2021-11-26] MEDS: ESCITALOPRAM 10 MG TAB PO SCH (09:56)
[2021-11-26] MEDS: DIVALPROEX DR 250 MG TAB PO SCH ×2 (09:56→22:48)
[2021-11-26] MEDS: ARIPiprazole 15 MG TAB PO SCH (09:56)
[2021-11-26] MEDS: LITHIUM CARBONATE 300 MG CAP PO SCH ×2 (09:56→22:48)
--- NOTE | 2021-11-26 18:17 | Progress Note ---
Subjective - Reason for Consult Reason for consult: Psychosis - Chief Complaint Chief complaint: 11/26/2021: Patient seen today. States that he is feeling much better. Denies any SI/HI at this time. Patient will be cleared from psych point of view. 11/25/21: The patient was seen today. He is in the seclusion room. His thoughts are more organized today, but he still has some bizarre behaviors. He is playing with his feet while talking to me and staring intensely at times. He verbalizes feeling "much better." He says he's still hallucinating and hearing "various things." He denies them being threatening in nature. The patient denies SI/HI. Nurse reports the patient was having loose associations. Will order Abilify maintena to increase med compliance and remission of mental illness. Once Abilify maintena is given will wean down on oral abilify. REVIEW OF SYSTEMS Unable to assess MENTAL STATUS EXAMINATION Unable to assess Diagnoses: Bipolar Disorder Treatment Plan Start Abilify [place] 300mg IM x [address] 250mg po BID Abilify 30mg po daily Lexapro 20mg po daily Doxepin 10mg po qhs [place] 300mg po BID Sitter: per primary Medical: Per primary Disposition: no indication for acute inpatient psychiatric hospitalization at this time Will sign off. Thanks Case staffed by Dr. Weller Mental Status Exam - Vital signs Last Vital Signs Temp 98.8 F 11/25/21 09:47 Pulse 60 11/25/21 09:47 Resp 17 11/25/21 09:47 BP 133/83 11/25/21 09:47 Pulse Ox 97 11/26/21 11:27
[2021-11-26] MEDS: DOXEPIN 10 MG CAP PO SCH (22:48)
[2021-11-27] MEDS: DIVALPROEX DR 250 MG TAB PO SCH ×2 (09:56→09:57)
[2021-11-27] MEDS: ESCITALOPRAM 10 MG TAB PO SCH (09:57)
[2021-11-27] MEDS: LITHIUM CARBONATE 300 MG CAP PO SCH (09:57)
[2021-11-27] MEDS: ARIPiprazole 15 MG TAB PO SCH (09:57)
--- NOTE | 2021-11-27 16:56 | Event Note ---
Date: 11/27/21 Patient is seen and examined. He is in no acute distress. He was deemed medically cleared on his initial ER evaluation. The psychiatric team have advised that he may be discharged from a psychiatric perspective. They have recommended that he does not meet criteria for 1013 hold or involuntary confinement. Nursing team reports no issues at this time Vital Signs 11/20/21 11/20/21 11/21/21 16:56 17:03 00:15 Temperature 98.9 F 98 F Pulse Rate 105 H 92 H Respiratory 16 18 Rate Blood Pressure 152/96 138/99 [Left] O2 Sat by Pulse 96 96 100 Oximetry 11/21/21 11/21/21 11/21/21 00:20 09:56 11:19 Temperature 98 F 97.4 F L Pulse Rate 92 H 97 H Respiratory 18 18 Rate Blood Pressure 136/86 131/89 [Left] O2 Sat by Pulse 100 98 98 Oximetry 11/21/21 11/21/21 11/22/21 16:16 20:16 20:56 Temperature 98.1 F 98.2 F Pulse Rate 88 85 Respiratory 18 18 Rate Blood Pressure 139/88 130/76 [Left] O2 Sat by Pulse 100 98 100 Oximetry 11/23/21 11/23/21 11/23/21 08:20 09:01 13:59 Temperature 98.7 F 97.6 F Pulse Rate 107 H 102 H Respiratory 18 20 Rate Blood Pressure 138/87 160/90 [Left] O2 Sat by Pulse 100 100 97 Oximetry 11/23/21 11/24/21 11/24/21 20:27 02:48 08:12 Temperature 98.1 F 98.1 F Pulse Rate 98 H 112 H Respiratory 18 18 Rate Blood Pressure 155/102 148/91 [Left] O2 Sat by Pulse 98 95 95 Oximetry 11/24/21 11/24/21 11/24/21 08:25 16:21 21:06 Temperature 97.5 F L 98.5 F Pulse Rate 16 L 107 H 82 Respiratory 16 16 18 Rate Blood Pressure 141/87 155/92 128/65 [Left] O2 Sat by Pulse 95 97 99 Oximetry 11/25/21 11/25/21 11/25/21 04:54 09:47 09:48 Temperature 98.4 F 98.8 F Pulse Rate 82 60 Respiratory 18 17 Rate Blood Pressure 124/62 133/83 [Left] O2 Sat by Pulse 99 100 100 Oximetry 11/26/21 11/26/21 11/26/21 06:50 11:27 19:56 Temperature 98.1 F Pulse Rate 61 Respiratory 18 Rate Blood Pressure 139/77 [Left] O2 Sat by Pulse 100 97 99 Oximetry 11/27/21 11/27/21 07:45 09:57 Temperature Pulse Rate 61 Respiratory 18 Rate Blood Pressure 148/69 [Left] O2 Sat by Pulse 99 100 Oximetry Lab Results 11/20/21 11/20/21 11/20/21 Range/Units 16:33 16:33 16:33 WBC 8.3 (4.5-11.0) K/mm3 RBC 5.52 H (3.65-5.03) M/mm3 Hgb 15.3 H (11.8-15.2) gm/dl Hct 46.0 H (35.5-45.6) % MCV 83 L (84-94) fl MCH 28 (28-32) pg MCHC 33 (32-34) % RDW 14.7 (13.2-15.2) % Plt Count 217 (140-440) K/mm3 Lymph % (Auto) 10.5 L (13.4-35.0) % [place] % (Auto) 7.0 (0.0-7.3) % Eos % (Auto) 0.3 (0.0-4.3) % Baso % (Auto) 0.5 (0.0-1.8) % Lymph # (Auto) 0.9 L (1.2-5.4) K/mm3 [place] # (Auto) 0.6 (0.0-0.8) K/mm3 Eos # (Auto) 0.0 (0.0-0.4) K/mm3 Baso # (Auto) 0.0 (0.0-0.1) K/mm3 Seg Neutrophils % 81.7 H (40.0-70.0) % Seg Neutrophils # 6.8 (1.8-7.7) K/mm3 Sodium 135 L (137-145) mmol/L Potassium 4.1 (3.6-5.0) mmol/L Chloride 98.6 (98-107) mmol/L Carbon Dioxide 26 (22-30) mmol/L Anion Gap 15 mmol/L BUN 7 L (9-20) mg/dL Creatinine 0.5 L (0.8-1.3) mg/dL Estimated GFR > 60 ml/min BUN/Creatinine Ratio 14 % Glucose 106 H (75-100) mg/dL Calcium 9.6 (8.4-10.2) mg/dL Urine Color (Yellow) Urine Turbidity (Clear) Urine pH (5.0-7.0) Ur Specific Blunt (1.003-1.030) Urine Protein (Negative) mg/dL Urine Glucose (UA) (Negative) mg/dL Urine Ketones (Negative) mg/dL Urine Blood (Negative) Urine Nitrite (Negative) Ur Reducing Substances Urine Bilirubin (Negative) Urine Ictotest Urine Urobilinogen (<2.0) mg/dL Ur Leukocyte Esterase (Negative) Urine WBC (Auto) (0.0-6.0) /HPF Urine RBC (Auto) (0.0-6.0) /HPF U Epithel Cells (Auto) (0-13.0) /HPF Urine Mucus /HPF Salicylates < 0.3 L (2.8-20.0) mg/dL Urine Opiates Screen Urine Methadone Screen Acetaminophen (10.0-30.0) ug/mL Ur Barbiturates Screen Ur Phencyclidine Scrn Ur Amphetamines Screen U Benzodiazepines Scrn [place] 0.1 (0.0-1.2) mmol/L Urine Cocaine Screen U Marijuana (THC) Screen Drugs of Abuse Note Plasma/Serum Alcohol (0-0.07) % SARS-CoV-2 (PCR) (Negative) 11/20/21 11/20/21 11/21/21 Range/Units 16:33 16:33 08:59 WBC (4.5-11.0) K/mm3 RBC (3.65-5.03) M/mm3 Hgb (11.8-15.2) gm/dl Hct (35.5-45.6) % MCV (84-94) fl MCH (28-32) pg MCHC (32-34) % RDW (13.2-15.2) % Plt Count (140-440) K/mm3 Lymph % (Auto) (13.4-35.0) % [place] % (Auto) (0.0-7.3) % Eos % (Auto) (0.0-4.3) % Baso % (Auto) (0.0-1.8) % Lymph # (Auto) (1.2-5.4) K/mm3 [place] # (Auto) (0.0-0.8) K/mm3 Eos # (Auto) (0.0-0.4) K/mm3 Baso # (Auto) (0.0-0.1) K/mm3 Seg Neutrophils % (40.0-70.0) % Seg Neutrophils # (1.8-7.7) K/mm3 Sodium (137-145) mmol/L Potassium (3.6-5.0) mmol/L Chloride (98-107) mmol/L Carbon Dioxide (22-30) mmol/L Anion Gap mmol/L BUN (9-20) mg/dL Creatinine (0.8-1.3) mg/dL Estimated GFR ml/min BUN/Creatinine Ratio % Glucose (75-100) mg/dL Calcium (8.4-10.2) mg/dL Urine Color Yellow (Yellow) Urine Turbidity Clear (Clear) Urine pH 7.0 (5.0-7.0) Ur Specific Blunt 1.010 (1.003-1.030) Urine Protein 30 mg/dl (Negative) mg/dL Urine Glucose (UA) Negative (Negative) mg/dL Urine Ketones 25 (Negative) mg/dL Urine Blood Negative (Negative) Urine Nitrite Negative (Negative) Ur Reducing Substances Not Reportable Urine Bilirubin Negative (Negative) Urine Ictotest Not Reportable Urine Urobilinogen < 2.0 (<2.0) mg/dL Ur Leukocyte Esterase Negative (Negative) Urine WBC (Auto) 2.0 (0.0-6.0) /HPF Urine RBC (Auto) 1.0 (0.0-6.0) /HPF U Epithel Cells (Auto) 1.0 (0-13.0) /HPF Urine Mucus Few /HPF Salicylates (2.8-20.0) mg/dL Urine Opiates Screen Urine Methadone Screen Acetaminophen 5.0 L (10.0-30.0) ug/mL Ur Barbiturates Screen Ur Phencyclidine Scrn Ur Amphetamines Screen U Benzodiazepines Scrn [place] (0.0-1.2) mmol/L Urine Cocaine Screen U Marijuana (THC) Screen Drugs of Abuse Note Plasma/Serum Alcohol < 0.01 (0-0.07) % SARS-CoV-2 (PCR) (Negative) 11/21/21 11/21/21 11/23/21 Range/Units 08:59 09:38 07:50 WBC (4.5-11.0) K/mm3 RBC (3.65-5.03) M/mm3 Hgb (11.8-15.2) gm/dl Hct (35.5-45.6) % MCV (84-94) fl MCH (28-32) pg MCHC (32-34) % RDW (13.2-15.2) % Plt Count (140-440) K/mm3 Lymph % (Auto) (13.4-35.0) % [place] % (Auto) (0.0-7.3) % Eos % (Auto) (0.0-4.3) % Baso % (Auto) (0.0-1.8) % Lymph # (Auto) (1.2-5.4) K/mm3 [place] # (Auto) (0.0-0.8) K/mm3 Eos # (Auto) (0.0-0.4) K/mm3 Baso # (Auto) (0.0-0.1) K/mm3 Seg Neutrophils % (40.0-70.0) % Seg Neutrophils # (1.8-7.7) K/mm3 Sodium (137-145) mmol/L Potassium (3.6-5.0) mmol/L Chloride (98-107) mmol/L Carbon Dioxide (22-30) mmol/L Anion Gap mmol/L BUN (9-20) mg/dL Creatinine (0.8-1.3) mg/dL Estimated GFR ml/min BUN/Creatinine Ratio % Glucose (75-100) mg/dL Calcium (8.4-10.2) mg/dL Urine Color (Yellow) Urine Turbidity (Clear) Urine pH (5.0-7.0) Ur Specific Blunt (1.003-1.030) Urine Protein (Negative) mg/dL Urine Glucose (UA) (Negative) mg/dL Urine Ketones (Negative) mg/dL Urine Blood (Negative) Urine Nitrite (Negative) Ur Reducing Substances Urine Bilirubin (Negative) Urine Ictotest Urine Urobilinogen (<2.0) mg/dL Ur Leukocyte Esterase (Negative) Urine WBC (Auto) (0.0-6.0) /HPF Urine RBC (Auto) (0.0-6.0) /HPF U Epithel Cells (Auto) (0-13.0) /HPF Urine Mucus /HPF Salicylates (2.8-20.0) mg/dL Urine Opiates Screen Negative Urine Methadone Screen Negative Acetaminophen (10.0-30.0) ug/mL Ur Barbiturates Screen Negative Ur Phencyclidine Scrn Negative Ur Amphetamines Screen Negative U Benzodiazepines Scrn Negative [place] (0.0-1.2) mmol/L Urine Cocaine Screen Negative U Marijuana (THC) Screen Negative Drugs of Abuse Note Disclamer Plasma/Serum Alcohol (0-0.07) % SARS-CoV-2 (PCR) Positive A Positive A (Negative)
[2021-11-27 17:23] VITALS: BP 128/82
== END 2021-11-27 17:55 | disposition home or self-care (01) ==
LOC: ED 16:08 → EEVIPCON 16:08 → ED 11-27 17:55
DX: U07.1 COVID-19 (principal); F25.0 Schizoaffective disorder, bipolar type; R45.850 Homicidal ideations; R45.851 Suicidal ideations; F23 Brief psychotic disorder; Z13.30 Encounter for screening examination for mental health and behavioral disorders, unspecified; R56.9 Unspecified convulsions; F41.9 Anxiety disorder, unspecified; Z88.0 Allergy status to penicillin; Z88.2 Allergy status to sulfonamides; Z88.8 Allergy status to other drugs, medicaments and biological substances
CPT/HCPCS: 36415; 73620; 80048; 80178; 80307; 81001; 85025; 96372; 99285; J3486; U0003; 80320; 99284; G0480

== ENCOUNTER 2021-11-27 22:15 | Emergency (ER) | payer BC, MEDICAID ==
[2021-11-27 22:51] VITALS: BP 106/69
--- NOTE | 2021-11-27 22:58 | Emergency Department Report ---
ED General Adult HPI - General Chief complaint: Seizure Stated complaint: BODY PAIN Time Seen by Provider: 11/27/21 22:44 Source: patient Mode of arrival: Stretcher Limitations: No Limitations - History of Present Illness Initial comments: 36-year-old male with a past medical history of schizoaffective disorder, bipolar, anxiety, and possible seizures presents to the hospital with complaints of paresthesias and numbness to bilateral upper and lower extremities. Patient was just discharged here at 17:55 after a 7-day stay for severe depression and p sychosis. At that time patient was brought in by police escort from a sober living facility. Since he was discharged from the hospital he walked to [employer] into another store. He states that he intended to stay the night at a friend's house but they had an argument. His father wanted him to stay at his house but they got into an argument because he did not want to go back to his father's house. Patient states he either plans to get a hotel room or stay the night at the sober living house. Patient states he called EMS because he had extremity paresthesias and thought he might be having a stroke or seizure. Patient also has chronic right foot swelling for several months and has been intermittently treated with antibiotics for cellulitis. Patient tested positive for COVID x2 during ED stay. He states he is asymptomatic and denies suicidal homicidal ideation and wants to be discharged Severity scale (0 -10): 0 - Related Data Home Medications Medication Instructions Recorded Confirmed Last Taken Albuterol Sulfate 90 mcg INHALATION PRN 11/20/21 Unknown Aripiprazole 20 mg PO DAILY 11/20/21 11/20/21 Unknown Carbamazepine 200 mg PO DAILY 11/20/21 11/20/21 Unknown Escitalopram 10 mg PO DAILY 11/20/21 11/20/21 Unknown Hydroxyzine Pamoate 50 mg PO Q4HR 11/20/21 11/20/21 Unknown [place] Carbonate 300 mg PO BID 11/20/21 11/20/21 Unknown risperiDONE 1 mg PO QAM 11/20/21 11/20/21 Unknown risperiDONE 2 mg PO QHS 11/20/21 11/20/21 Unknown Previous Rx's Medication Instructions Recorded Last Taken Type Clindamycin [Clindamycin CAP] 450 mg PO Q8HR 7 Days capsule 11/28/21 Unknown Rx Allergies Allergy/AdvReac Type Severity Reaction Status Date / Time diphenhydramine Allergy Unknown Verified 11/20/21 16:16 [From Benadryl] Penicillins Allergy Hives Verified 11/20/21 16:16 prednisone Allergy Unknown Verified 11/20/21 16:16 Sulfa (Sulfonamide Allergy Anaphylaxis Verified 11/20/21 16:16 Antibiotics) ED Review of Systems ROS: Stated complaint: BODY PAIN Other details as noted in HPI Comment: All other systems reviewed and negative ED Past Medical Hx - Past Medical History Previous Medical History?: Yes Hx CVA: Yes Hx Seizures: Yes Hx Psychiatric Treatment: Yes (SCHIZOAFFECTIVE DISOIRDER, BIPOLAR,ANXIETY) - Surgical History Past Surgical History?: No - Social History Smoking Status: Never Smoker Substance Use Type: None - Medications Home Medications: Home Medications Medication Instructions Recorded Confirmed Last Taken Type Albuterol Sulfate 90 mcg INHALATION PRN 11/20/21 Unknown History Aripiprazole 20 mg PO DAILY 11/20/21 11/20/21 Unknown History Carbamazepine 200 mg PO DAILY 11/20/21 11/20/21 Unknown History Escitalopram 10 mg PO DAILY 11/20/21 11/20/21 Unknown History Hydroxyzine Pamoate 50 mg PO Q4HR 11/20/21 11/20/21 Unknown History [place] Carbonate 300 mg PO BID 11/20/21 11/20/21 Unknown History risperiDONE 1 mg PO QAM 11/20/21 11/20/21 Unknown History risperiDONE 2 mg PO QHS 11/20/21 11/20/21 Unknown History Clindamycin [Clindamycin CAP] 450 mg PO Q8HR 7 Days capsule 11/28/21 Unknown Rx ED Physical Exam - General Limitations: No Limitations - Other Other exam information: General: No acute distress Head: Atraumatic Eyes: normal appearance ENT: Moist mucous membranes Neck: Normal appearance, no midline tenderness Chest: Clear to auscultation bilaterally CV: Mild tachycardia Abdomen: Soft, normal bowel sounds, nontender, nondistended, no rebound or guarding Back: Normal inspection Extremity: Right foot diffuse swelling with mild erythema and warmth. 2+ pulse DP pulse bilateral. no calf tenderness Neuro: Alert O x 3, no facial asymmetry, speech clear, no gross motor sensory deficit. Mild intention tremor, hebale-fagm-[id number] function intact Psych: Mildly anxious Skin: No rash ED Course Vital Signs 11/27/21 11/27/21 11/27/21 22:15 22:41 22:45 Temperature 98 F Pulse Rate 108 H 102 H Respiratory 18 25 H 26 H Rate Blood Pressure 139/81 108/66 Blood Pressure [Right] O2 Sat by Pulse 98 99 98 Oximetry 11/27/21 11/27/21 11/27/21 22:48 22:49 23:01 Temperature Pulse Rate 101 H 104 H 98 H Respiratory 20 18 29 H Rate Blood Pressure 106/69 106/69 Blood Pressure 106/69 [Right] O2 Sat by Pulse 100 99 100 Oximetry 11/27/21 11/28/21 11/28/21 23:15 00:13 00:15 Temperature Pulse Rate 109 H 90 92 H Respiratory 26 H 22 Rate Blood Pressure 106/69 106/69 106/69 Blood Pressure [Right] O2 Sat by Pulse 95 99 Oximetry - Reevaluation(s) Reevaluation #1: 11/28/21 00:00 I have ordered patient's evening dose of meds as indicated by recent ED stay. I have held his sleeping medication per his request. ED Medical Decision Making - Radiology Data Radiology results: report reviewed DUPLEX DOPPLER LOWER EXTREMITY VEINS, RIGHT INDICATION: leg edema. TECHNIQUE: Duplex doppler imaging was performed through the veins of the right lower extremity using venous compression and other maneuvers. COMPARISON: No relevant prior imaging study available. FINDINGS: Right Common femoral vein: Negative. Right Superficial femoral vein: Negative. Right Popliteal vein: Negative. Right Calf veins: Negative. Additional findings: None.. IMPRESSION: Negative for DVT. - Medical Decision Making 36-year-old male with psychiatric disorder B presents to the hospital after recent discharge presents to the hospital with paresthesias after having AN argument with his father. No seizure activity or focal neurologic deficit identified. Suspect anxiety reaction. Patient provided his evening psychiatric medications with exception of sleep medicine since he will be discharged. Patient has a bag with his medications. Right foot swelling noted which patient states is chronic. There is some mild redness and warmth around will be treated with clindamycin. No signs of DVT Critical Care Time: No Critical care attestation.: If time is entered above; I have spent that time in minutes in the direct care of this critically ill patient, excluding procedure time. ED Disposition Clinical Impression: Anxiety, Paresthesia, Cellulitis of right foot Disposition: 01 HOME / SELF CARE / HOMELESS Is pt being admited?: No Condition: Stable Instructions: Cellulitis, Adult, Paresthesia, Managing Anxiety, Adult Additional Instructions: Take the medication as prescribed. Follow-up with your doctor or doctor/clinic provided. Return if symptoms worsen as indicated by your discharge instructions. Prescriptions: Clindamycin [Clindamycin CAP] 450 mg PO Q8HR 7 Days capsule Referrals: DORIAN OTERO MD [Primary Care Provider] - 3-5 Days Time of Disposition: 00:53
[2021-11-27] MEDS ORDERED: risperiDONE 1 MG TAB PO ONE (23:02)
[2021-11-27] MEDS ORDERED: LITHIUM CARBONATE 300 MG CAP PO ONE (23:05)
[2021-11-27] MEDS ORDERED: DOXEPIN 10 MG CAP PO ONE (23:05)
[2021-11-27] MEDS ORDERED: DIVALPROEX DR 250 MG TAB PO ONE (23:06)
--- NOTE | 2021-11-28 00:32 | Vascular Lab Report ---
DUPLEX DOPPLER LOWER EXTREMITY VEINS, RIGHT INDICATION: leg edema. TECHNIQUE: Duplex doppler imaging was performed through the veins of the right lower extremity using venous comp ression and other maneuvers. COMPARISON: No relevant prior imaging study available. FINDINGS: Right Common femoral vein: Negative. Right Superficial femoral vein: Negative. Right Popliteal vein: Negative. Right Calf veins: Negative. Additional findings: None.. IMPRESSION: Negative for DVT. Signer Name: Brandan Thomas MD Signed: 11/28/2021 12:28 AM Workstation Name: [id number]
[2021-11-28] MEDS ORDERED: CLINDAMYCIN 150 MG CAP PO ONE (01:21)
== END 2021-11-28 01:01 | disposition home or self-care (01) ==
LOC: ED 22:15
DX: L03.115 Cellulitis of right lower limb (principal); R20.2 Paresthesia of skin; F41.9 Anxiety disorder, unspecified; R56.9 Unspecified convulsions; Z86.73 Personal history of transient ischemic attack (TIA), and cerebral infarction without residual deficits; Z88.0 Allergy status to penicillin; Z88.1 Allergy status to other antibiotic agents; Z91.09 Other allergy status, other than to drugs and biological substances; Z79.899 Other long term (current) drug therapy
CPT/HCPCS: 99284

== ENCOUNTER 2022-02-06 14:32 | Emergency (ER) | payer BC, MEDICAID | END 2022-02-06 15:10 | disposition left against medical advice (07) | LOC: ED 14:32 | DX: R07.89 Other chest pain (principal); Z53.21 Procedure and treatment not carried out due to patient leaving prior to being seen by health care provider ==

== ENCOUNTER 2022-02-06 23:08 | Emergency (ER) | payer BC, MEDICAID ==
[2022-02-07] MEDS ORDERED: KETOROLAC 10 MG TAB PO ONE (02:56)
--- NOTE | 2022-02-07 03:21 | Emergency Department Report ---
ED General Adult HPI - General Chief complaint: Chest Pain Stated complaint: CHEST PAIN Time Seen by Provider: 02/07/22 02:29 Source: patient Mode of arrival: Ambulatory Limitations: No Limitations - History of Present Illness Initial comments: 36-year-old white male with a past medical history of hypertension, asthma, and anemia presents to the emergency department for evaluation of midsternal chest pain. He states that pain started this morning and was associated with some dizziness. He denies shortness of breath, nausea, with a couple episodes. He states that pain at its worst is 8 out of 10 and is significantly worse with palpation and deep inspiration. He denies fever. He states that he was diagnosed with costochondritis previously and pain seems similar to that. He states that he is not taking any medication for his pain. MD Complaint: Chest pain -: This morning Location: chest Radiation: non-radiation Severity scale (0 -10): 8 Quality: aching Consistency: constant Worsens with: other (Inspiration and palpation) Associated Symptoms: chest pain. denies: confusion, cough, diaphoresis, fever/chills, headaches, loss of appetite, malaise, nausea/vomiting, rash, seizure, shortness of breath, syncope, weakness Treatments Prior to Arrival: none - Related Data Home Medications Medication Instructions Recorded Confirmed Last Taken Albuterol Sulfate 90 mcg INHALATION PRN 11/20/21 Unknown Aripiprazole 20 mg PO DAILY 11/20/21 11/20/21 Unknown Carbamazepine 200 mg PO DAILY 11/20/21 11/20/21 Unknown Escitalopram 10 mg PO DAILY 11/20/21 11/20/21 Unknown Hydroxyzine Pamoate 50 mg PO Q4HR 11/20/21 11/20/21 Unknown [place] Carbonate 300 mg PO BID 11/20/21 11/20/21 Unknown risperiDONE 1 mg PO QAM 11/20/21 11/20/21 Unknown risperiDONE 2 mg PO QHS 11/20/21 11/20/21 Unknown Previous Rx's Medication Instructions Recorded Last Taken Type Clindamycin [Clindamycin CAP] 450 mg PO Q8HR 7 Days capsule 11/28/21 Unknown Rx Ketorolac [Toradol] 10 mg PO Q6H PRN #12 tab 02/07/22 Unknown Rx Allergies Allergy/AdvReac Type Severity Reaction Status Date / Time diphenhydramine Allergy Unknown Verified 11/20/21 16:16 [From Benadryl] Penicillins Allergy Hives Verified 11/20/21 16:16 prednisone Allergy Unknown Verified 11/20/21 16:16 Sulfa (Sulfonamide Allergy Anaphylaxis Verified 11/20/21 16:16 Antibiotics) ED Review of Systems ROS: Stated complaint: CHEST PAIN Other details as noted in HPI Comment: All other systems reviewed and negative Constitutional: denies: chills, fever Respiratory: denies: shortness of breath Cardiovascular: chest pain. denies: palpitations, dyspnea on exertion, orthopne a, edema, syncope, paroxysmal nocturnal dyspnea Gastrointestinal: denies: abdominal pain, nausea, vomiting Genitourinary: denies: urgency, dysuria Musculoskeletal: denies: back pain Neurological: denies: headache, weakness ED Past Medical Hx - Past Medical History Previous Medical History?: Yes Hx Hypertension: Yes (UNMEDICATED) Hx CVA: Yes (2020, AFTER DELTA8) Hx Arthritis: Yes Hx Seizures: Yes Hx Psychiatric Treatment: Yes (SCHIZOAFFECTIVE DISOIRDER, BIPOLAR,ANXIETY) Additional medical history: ANEMIA - Surgical History Past Surgical History?: Yes - Social History Smoking Status: Unknown if ever smoked Substance Use Type: None - Medications Home Medications: Home Medications Medication Instructions Recorded Confirmed Last Taken Type Albuterol Sulfate 90 mcg INHALATION PRN 11/20/21 Unknown History Aripiprazole 20 mg PO DAILY 11/20/21 11/20/21 Unknown History Carbamazepine 200 mg PO DAILY 11/20/21 11/20/21 Unknown History Escitalopram 10 mg PO DAILY 11/20/21 11/20/21 Unknown History Hydroxyzine Pamoate 50 mg PO Q4HR 11/20/21 11/20/21 Unknown History [place] Carbonate 300 mg PO BID 11/20/21 11/20/21 Unknown History risperiDONE 1 mg PO QAM 11/20/21 11/20/21 Unknown History risperiDONE 2 mg PO QHS 11/20/21 11/20/21 Unknown History Clindamycin [Clindamycin CAP] 450 mg PO Q8HR 7 Days capsule 11/28/21 Unknown Rx Ketorolac [Toradol] 10 mg PO Q6H PRN #12 tab 02/07/22 Unknown Rx ED Physical Exam - General Limitations: No Limitations General appearance: alert, in no apparent distress - Head Head exam: Present: atraumatic, normocephalic - Eye Eye exam: Present: normal appearance. Absent: conjunctival injection - Neck Neck exam: Present: normal inspection, full ROM. Absent: tenderness, lymphadenopathy - Respiratory Respiratory exam: Present: normal lung sounds bilaterally, chest wall tenderness (Midsternal). Absent: respiratory distress, wheezes, rales, rhonchi, stridor - Cardiovascular Cardiovascular Exam: Present: tachycardia, normal heart sounds - GI/Abdominal GI/Abdominal exam: Present: soft, normal bowel sounds. Absent: distended, tenderness, guarding, rebound, rigid - Extremities Exam Extremities exam: Present: normal inspection, full ROM, normal capillary refill. Absent: tenderness, pedal edema, joint swelling, calf tenderness - Back Exam Back exam: Present: normal inspection. Absent: CVA tenderness (R), CVA tenderness (L) - Neurological Exam Neurological exam: Present: alert, oriented X3, CN II-XII intact, normal gait - Psychiatric Psychiatric exam: Present: normal affect, normal mood - Skin Skin exam: Present: warm, dry, intact, normal color ED Course Vital Signs 02/06/22 23:46 Temperature 98.6 F Pulse Rate 110 H Respiratory 18 Rate Blood Pressure 156/98 O2 Sat by Pulse 98 Oximetry ED Medical Decision Making - EKG Data Interpretation: no acute changes - Medical Decision Making 36-year-old white male with a past medical history of hypertension, asthma, and anemia presents to the emergency department for evaluation of midsternal chest pain. He states that pain started this morning and was associated with some dizziness. He denies shortness of breath, nausea, with a couple episodes. He states that pain at its worst is 8 out of 10 and is significantly worse with palpation and deep inspiration. He denies fever. He states that he was diagnosed with costochondritis previously and pain seems similar to that. He states that he is not taking any medication for his pain. Physical exam consistent with chest wall tenderness. EKG without any acute ischemic changes noted. Patient will be treated with Toradol in the emergency department and discharged home with Toradol to use as needed for pain and advised to follow-up with his primary care provider or cardiology if no improvement or worsening symptoms. He is advised to return to the emergency department as needed. He verbalizes understanding of and agreement with plan of care. Critical care attestation.: If time is entered above; I have spent that time in minutes in the direct care of this critically ill patient, excluding procedure time. ED Disposition Clinical Impression: Chest wall pain Disposition: 01 HOME / SELF CARE / HOMELESS Is pt being admited?: No Does the pt Need Aspirin: No Condition: Stable Instructions: Nonspecific Chest Pain, Adult, Chest Wall Pain, [id number] Additional Instructions: Take medications as prescribed. Follow-up with your primary care provider or cardiology if no improvement or worsening symptoms. Return to the emergency department as needed. Prescriptions: Ketorolac [Toradol] 10 mg PO Q6H PRN #12 tab PRN Reason: Pain Referrals: DORIAN OTERO MD [Staff Physician] - 3-5 Days TRU BAY MD [Staff Physician] - 3-5 Days Time of Disposition: 03:23
[2022-02-07 04:09] VITALS: BP 144/79
--- NOTE | 2022-02-09 14:16 | Electrocardiograph Report ---
[facility] Test Date: 2022-02-06 Test Time: 23:48:54 Pat Name: CHRIS SERRA Department: Room: Gender: M [employer] Up Operator: JACI : 1985 Requested By: RADHA CLEARY Order Number: [id number] Reading MD: Berenice Eastman Measurements Intervals Stephan Rate: 102 P: 55 FL: 134 QRS: 14 QRSD: 86 T: 42 QT: 330 QTc: 430 Interpretive Statements Sinus tachycardia Probable left atrial enlargement No previous ECG available for comparison Electronically Signed On 02-09-2022 14:16:11 EDT by Berenice Eastman
== END 2022-02-07 04:10 | disposition home or self-care (01) ==
LOC: ED 23:08
DX: R07.89 Other chest pain (principal); Z88.0 Allergy status to penicillin; Z88.2 Allergy status to sulfonamides; Z88.8 Allergy status to other drugs, medicaments and biological substances; I10 Essential (primary) hypertension; F20.9 Schizophrenia, unspecified; F31.9 Bipolar disorder, unspecified
CPT/HCPCS: 93005; 99282

== ENCOUNTER 2022-02-07 04:26 | Emergency (ER) | payer BC, MEDICAID ==
[2022-02-07 04:34] VITALS: BP 147/100
[2022-02-07 05:09] LABS: Basophils % (Auto) 0.8 % (0.0-1.8); Hematocrit 43.4 % (35.5-45.6); Hemoglobin 14.7 gm/dl (11.8-15.2); Lymphocytes # (Auto) 1.1 K/mm3 (1.2-5.4); Mean Corpuscular HGB Conc 34 % (32-34); Mean Corpuscular Volume 77 fl (84-94); Monocytes # (Auto) 0.4 K/mm3 (0.0-0.8); Monocytes % (Auto) 7.1 % (0.0-7.3); Platelet Count 158 K/mm3 (140-440); Red Blood Count 5.61 M/mm3 (3.65-5.03); Red Cell Distribution Width 16.9 % (13.2-15.2)
[2022-02-07 05:16] LABS: Blood Urea Nitrogen 9 mg/dL (9-20); Calcium 9.1 mg/dL (8.4-10.2); Hemolysis Index 24
[2022-02-07 05:19] LABS: BUN/Creatinine Ratio 15
[2022-02-07 05:28] LABS: INR 0.93 (0.87-1.13); Partial Thromboplastin Time 29.9 Sec. (24.2-36.6)
--- NOTE | 2022-02-07 06:28 | Emergency Department Report ---
ED Medical Clearance HPI - General Chief complaint: Medical Clearance Stated complaint: MEDICAL CLEARANCE Time Seen by Provider: 02/07/22 06:22 Source: patient Mode of arrival: Ambulatory - History of Present Illness MD Complaint: medical clearance request -: Gradual Reason for Medical Clearance: psychiatric condition Place: home Alledged Intoxication: No Compliant with Home Medications: No Traumatic Symptoms: denies traumatic injury Home medications: Home Medications Medication Instructions Recorded Confirmed Last Taken Albuterol Sulfate 90 mcg INHALATION PRN 11/20/21 Unknown Aripiprazole 20 mg PO DAILY 11/20/21 11/20/21 Unknown Carbamazepine 200 mg PO DAILY 11/20/21 11/20/21 Unknown Escitalopram 10 mg PO DAILY 11/20/21 11/20/21 Unknown Hydroxyzine Pamoate 50 mg PO Q4HR 11/20/21 11/20/21 Unknown [place] Carbonate 300 mg PO BID 11/20/21 11/20/21 Unknown risperiDONE 1 mg PO QAM 11/20/21 11/20/21 Unknown risperiDONE 2 mg PO QHS 11/20/21 11/20/21 Unknown Previous Rx's Medication Instructions Recorded Last Taken Type Clindamycin [Clindamycin CAP] 450 mg PO Q8HR 7 Days capsule 11/28/21 Unknown Rx Ketorolac [Toradol] 10 mg PO Q6H PRN #12 tab 02/07/22 Unknown Rx Allergies/Adverse reactions: Allergies Allergy/AdvReac Type Severity Reaction Status Date / Time diphenhydramine Allergy Unknown Verified 11/20/21 16:16 [From Benadryl] Penicillins Allergy Hives Verified 11/20/21 16:16 prednisone Allergy Unknown Verified 11/20/21 16:16 Sulfa (Sulfonamide Allergy Anaphylaxis Verified 11/20/21 16:16 Antibiotics) ED Review of Systems ROS: Stated complaint: MEDICAL CLEARANCE Other details as noted in HPI Constitutional: no symptoms reported Eyes: as per HPI ENT: as per HPI Respiratory: no symptoms reported, orthopnea Neurological: as per HPI Psychiatric: as per HPI ED Past Medical Hx - Past Medical History Previous Medical History?: Yes Hx Hypertension: Yes (UNMEDICATED) Hx CVA: Yes (2020, AFTER 10) Hx Arthritis: Yes Hx Seizures: Yes Hx Psychiatric Treatment: Yes (SCHIZOAFFECTIVE DISOIRDER, BIPOLAR,ANXIETY) Additional medical history: ANEMIA - Social History Smoking Status: Unknown if ever smoked Substance Use Type: None - Medications Home Medications: Home Medications Medication Instructions Recorded Confirmed Last Taken Type Albuterol Sulfate 90 mcg INHALATION PRN 11/20/21 Unknown History Aripiprazole 20 mg PO DAILY 11/20/21 11/20/21 Unknown History Carbamazepine 200 mg PO DAILY 11/20/21 11/20/21 Unknown History Escitalopram 10 mg PO DAILY 11/20/21 11/20/21 Unknown History Hydroxyzine Pamoate 50 mg PO Q4HR 11/20/21 11/20/21 Unknown History [place] Carbonate 300 mg PO BID 11/20/21 11/20/21 Unknown History risperiDONE 1 mg PO QAM 11/20/21 11/20/21 Unknown History risperiDONE 2 mg PO QHS 11/20/21 11/20/21 Unknown History Clindamycin [Clindamycin CAP] 450 mg PO Q8HR 7 Days capsule 11/28/21 Unknown Rx Ketorolac [Toradol] 10 mg PO Q6H PRN #12 tab 02/07/22 Unknown Rx ED Physical Exam - General Limitations: No Limitations General appearance: alert, in no apparent distress - Eye Eye exam: Present: normal appearance, PERRL - ENT ENT exam: Present: normal exam, normal orophraynx, mucous membranes dry - Neck Neck exam: Present: normal inspection - Respiratory Respiratory exam: Present: normal lung sounds bilaterally. Absent: respiratory distress, chest wall tenderness - Cardiovascular Cardiovascular Exam: Present: regular rate, normal heart sounds - GI/Abdominal GI/Abdominal exam: Present: soft, distended. Absent: tenderness - Back Exam Back exam: Present: normal inspection, full ROM - Neurological Exam Neurological exam: Present: alert, oriented X3, CN II-XII intact, normal gait, reflexes normal. Absent: motor sensory deficit - Psychiatric Psychiatric exam: Present: normal affect, flat affect - Skin Skin exam: Present: warm, dry ED Course Vital Signs 02/07/22 04:29 Temperature 98.5 F Pulse Rate 103 H Respiratory 18 Rate Blood Pressure 147/100 O2 Sat by Pulse 98 Oximetry ED Medical Decision Making - Lab Data Result diagrams: 02/07/22 04:34 02/07/22 04:34 ED Disposition Clinical Impression: Medical clearance for psychiatric admission Disposition: 01 HOME / SELF CARE / HOMELESS Is pt being admited?: No Does the pt Need Aspirin: No Condition: Stable Instructions: Medical Screening Exam
[2022-02-07 06:53] LABS: Color,Urine Colorless (Yellow)
[2022-02-07 06:58] LABS: WBC,Urine < 1.0 /HPF (0.0-6.0)
[2022-02-07 07:03] LABS: Amphetamine Screen,Urine Negative; Benzodiazepines Screen,Urine Negative; Cannabinoid Screen,Urine Negative; Cocaine Screen,Urine Negative; Methadone Screen,Urine Negative; Opiate Screen,Urine Negative
== END 2022-02-07 07:04 | disposition home or self-care (01) ==
LOC: ED 04:26
DX: Z04.6 Encounter for general psychiatric examination, requested by authority (principal); F20.9 Schizophrenia, unspecified; F31.9 Bipolar disorder, unspecified; F41.9 Anxiety disorder, unspecified; I10 Essential (primary) hypertension; R79.1 Abnormal coagulation profile; M19.90 Unspecified osteoarthritis, unspecified site; Z79.899 Other long term (current) drug therapy; Z88.0 Allergy status to penicillin; Z88.8 Allergy status to other drugs, medicaments and biological substances
CPT/HCPCS: 36415; 80048; 80307; 80320; 81001; 85025; 85610; 85730; 99283; G0480